=== PATIENT | female | born 2000 | race Caucasian/White ===

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

== ENCOUNTER → 2021-10-13 | Emergency (ER) | payer OTHER ==
[~2021-10-13] VITALS: Ht 160 cm; Wt 49.9 kg
[~2021-10-13] MED LIST: CEFADROXIL500 MG PO
== END | disposition home or self-care (01) ==
LOC: ER 12:48 → EMR PED 12:48
DX: J06.9 Acute upper respiratory infection, unspecified (principal); Z20.822 Contact with and (suspected) exposure to COVID-19

== ENCOUNTER 2022-04-02 07:32 | Outpatient (CLI) | payer OTHER | END 2022-04-02 07:38 | disposition home or self-care (01) | LOC: RAD 07:32 | DX: M25.562 Pain in left knee (principal) ==

== ENCOUNTER 2023-04-16 09:39 | Outpatient (CLI) | payer OTHER | END 2023-04-16 09:49 | disposition home or self-care (01) | LOC: RAD 09:39 | DX: R10.2 Pelvic and perineal pain (principal); M54.59 Other low back pain; M99.03 Segmental and somatic dysfunction of lumbar region ==

== ENCOUNTER → 2025-08-31 | Emergency (ER) | payer OTHER ==
[~2025-08-31] VITALS: Ht 160 cm; Wt 54.4 kg
[~2025-08-31] MED LIST changes: +0.9 % SODIUM CHLORIDE 1,000 ML IV SCH; +BETANATE15 GM TP; +CALCIPOTRIENE60 GM TP; +FAMOTIDINE/PF 20 MG/2 ML VIAL IV ONE; +KETOROLAC TROMETHAMINE 30 MG VIAL IV ONE; +PEPCID AC20 MG PO; +PROTONIX40 MG PO
[2025-08-31 11:54] LABS: BASO % 0.5 % (0.1-1.2); EOS # 0.03 (0.04-0.54); EOS % 0.5 % (0.7-7.0); LYMPH # 2.00 (1.18-3.74); LYMPH % 32.5 % (19.3-53.1); MEAN PLATELET VOLUME 10.10 fl (9.4-12.4); MONO # 0.36 (0.24-0.82); MONO % 5.8 % (4.7-12.5); NEUT # 3.73 (1.56-6.13); NEUT % 60.5 % (34.0-71.1); RED CELL DISTRIBUTION WIDTH 11.0 % (11.6-14.4)
[2025-08-31 11:58] LABS: ERYTHROCYTE SEDIMENTATION RATE < 1 mm/hr (0-20)
[2025-08-31 12:13] LABS: INR 1.05
[2025-08-31 12:18] LABS: ALT/SGPT 15 U/L (12-78); AST/SGOT 11 U/L (15-37); BILIRUBIN TOTAL 0.58 mg/dL (0.3-1.2); BUN CREA RATIO 16 (7.0-25.0); CREATININE SERUM 0.64 mg/dL (0.55-1.02); GFR 114.00; GLOBULINA 3.1 G/DL (2.4-3.5); GLUCOSE FASTING 93 mg/dL (65-100); OSMOLALITY SERUM 280 MOSM/KG (275-295)
[2025-08-31 12:33] LABS: URINE APPEARANCE Clear; URINE BILIRRUBIN Negative (NEGATIVE); URINE BLOOD Negative; URINE COLOR Yellow; URINE GLUCOSE Negative (NEGATIVE); URINE KETONE Negative (NEGATIVE); URINE LEUKOCYTE Negative; URINE NITRATE Negative; URINE PROTEIN Negative (NEGATIVE); URINE UROBILINOGEN 0.2 E.U./dl
[2025-08-31 12:36] LABS: URINE BACTERIA 713.8 uL (0.0-1933); URINE EPITHELIAL CELLS 7.3 uL (0.0-38.8); URINE RBC 2.7 uL (0.0-20.8); URINE WBC 6.6 uL (0.0-23.2)
[2025-08-31 12:39] LABS: URINE CAST 0.00 uL (0.0-1.40)
== END | disposition home or self-care (01) ==
LOC: ER 09:45
PROVIDERS: Student in an Organized Health Care Education/Training Program
DX: K29.70 Gastritis, unspecified, without bleeding (principal); R10.9 Unspecified abdominal pain; Z91.018 Allergy to other foods